=== PATIENT | male | born 1975 | race Caucasian/White ===

== ENCOUNTER 2016-12-27 15:51 | Emergency (ER) | payer MEDICAID | END 2016-12-27 16:45 | disposition left against medical advice (07) | LOC: MW.ED 15:51 | DX: Z53.21 Procedure and treatment not carried out due to patient leaving prior to being seen by health care provider (principal) | CPT/HCPCS: 99281 ==

== ENCOUNTER 2017-09-06 08:14 | Emergency (ER) | payer SELFPAY ==
--- NOTE | 2017-09-06 08:24 | EDM.PDOC ---
ED HPI GENERAL MEDICAL PROBLEM - General Chief Complaint: Behavioral/Psych Stated Complaint: MEDICAL Time Seen by Provider: 09/06/17 08:24 Source of Information: Reports: Patient - History of Present Illness INITIAL COMMENTS - FREE TEXT/NARRATIVE: HISTORY AND PHYSICAL: History of present illness: [Patient presents via [place] Initially an ambulance was called for the patient however he has a known combative nature and has been quite obstinate this morning. He is known to have methamphetamine use abuse dependence history and admission at [facility] for methamphetamine psychosis a year prior. He states he has not used methamphetamine in 3 weeks. He did voiced an extended his mother that he was going to kill himself today he has made mention of this several times over the last week he has some underlying factor such as Court this morning, the last year his children have been in [place] as he is going through a divorce with his as well as the ongoing legal issues. He does not voice plan however he has become quite physical requiring the please to return despite having 20 mg of Geodon IM on board we did have to perform a code strong to keep him here in the emergency room. No fever nausea vomiting chills sweats no chest pain shortness breath headache dizziness palpitation no bowel or urine symptoms Patient is known to have taken one of his mother's Xanax this morning, His mother states he has a history of bipolar disorder possibly schizophrenia he has been on Seroquel in the past however he has been out of medication for about 3 weeks Other medications have been brought to my attention by family are bupropion zolpidem and propranolol Review of systems: As per history of present illness and below otherwise all systems reviewed and negative. Past medical history: As per history of present illness and as reviewed below otherwise noncontributory. Surgical history: As per history of present illness and as reviewed below otherwise noncontributory. Social history: No reported history of drug or alcohol abuse. Family history: As per history of present illness and as reviewed below otherwise noncontributory. Physical exam: HEENT: Atraumatic, normocephalic, pupils reactive, negative for conjunctival pallor or scleral icterus, mucous membranes moist, throat clear, neck supple, nontender, trachea midline. Lungs: Clear to auscultation, breath sounds equal bilaterally, chest nontender. Heart: S1S2, regular, negative for clicks, rubs, or JVD. Abdomen: Soft, nondistended, nontender. Negative for masses or hepatosplenomegaly. Negative for costovertebral tenderness. Pelvis: Stable nontender. Genitourinary: Deferred. Rectal: Deferred. Extremities: Atraumatic, negative for cords or calf pain. Neurovascular unremarkable. Neuro: Awake, alert, oriented. Cranial nerves II through XII unremarkable. Cerebellum unremarkable. Motor and sensory unremarkable throughout. Exam nonfocal. Diagnostics: [CBC CMP UA troponin EKG chest 1 view aspirin and Tylenol levels as well as alcohol and drug screening tsh EKG Chest 1 view ] Therapeutics: [20 mg of Geodon IM Haldol 10 mg IM Ativan 2 mg IV ] Impression: [Suicidal ideation Methamphetamine use and abuse Paranoid delusions Medication noncompliance] Definitive disposition and diagnosis as appropriate pending reevaluation and review of above. - Related Data Allergies Allergy/AdvReac Type Severity Reaction Status Date / Time azithromycin Allergy Hives Verified 09/06/17 08:25 Penicillins Allergy Hives Verified 09/06/17 08:25 Home Meds: Home Meds Propranolol HCl [Propranolol] 10 mg PO Q8HR 09/06/17 [History] QUEtiapine Fumarate [Seroquel] 240 mg PO DAILY 09/06/17 [History] Zolpidem Tartrate [Ambien] 10 mg PO DAILY 09/06/17 [History] Past Medical History HEENT History: Reports: None Cardiovascular History: Reports: Hypertension Respiratory History: Reports: None Gastrointestinal History: Reports: Other (See Below) Other Gastrointestinal History: colitis Genitourinary History: Reports: None Musculoskeletal History: Reports: None Neurological History: Reports: None Psychiatric History: Reports: Addiction, Aggressive/Hostile Behaviors, Bipolar, Emotional Problems, Psych Hospitalization(s), Suicide Attempt, Suicidal Ideation Other Psychiatric History: states in treatment 1 yr ago Endocrine/Metabolic History: Reports: None Hematologic History: Reports: None Immunologic History: Reports: None Oncologic (Cancer) History: Reports: None Dermatologic History: Reports: None - Infectious Disease History Infectious Disease History: Reports: Chicken Pox - Past Surgical History Head Surgeries/Procedures: Reports: None Social & Family History - Family History Family Medical History: Noncontributory - Tobacco Use Smoking Status *Q: Current Every Day Smoker Years of Tobacco use: 1 Packs/Tins Daily: 1 Second Hand Smoke Exposure: Yes - Caffeine Use Caffeine Use: Reports: Soda - Alcohol Use Days Per Week of Alcohol Use: 0 - Recreational Drug Use Recreational Drug Use: Yes Drug Use in Last 12 Months: Yes Recreational Drug Type: Reports: Methamphetamine Recreational Drug Use Frequency: Socially ED ROS GENERAL - Review of Systems Review Of Systems: ROS reveals no pertinent complaints other than HPI. ED EXAM, GENERAL - Physical Exam Exam: See Below Course - Vital Signs Last Recorded V/S: Last Vital Signs Temp 96.5 F 09/06/17 08:48 Pulse 73 09/06/17 08:48 Resp 18 09/06/17 08:48 BP 187/124 H 09/06/17 08:48 Pulse Ox 97 09/06/17 08:48 - Orders/Labs/Meds Orders: Active Orders 24 hr Category Date Time Status EKG Documentation Completion [RC] STAT Care 09/06/17 08:21 Active Labs: Laboratory Tests 09/06/17 09/06/17 09/06/17 Range/Units 08:33 08:33 09:11 WBC 10.47 (4.0-11.0) K/uL RBC 5.37 (4.50-5.90) M/uL Hgb 16.4 (13.0-17.0) g/dL Hct 47.3 (38.0-50.0) % MCV 88.1 (80.0-98.0) fL MCH 30.5 (27.0-32.0) pg MCHC 34.7 (31.0-37.0) g/dL RDW Std Deviation 43.8 (28.0-62.0) fl RDW Coeff of Swapna 14 (11.0-15.0) % Plt Count 307 (150-400) K/uL MPV 10.90 (7.40-12.00) fL Neut % (Auto) 59.1 (48.0-80.0) % Lymph % (Auto) 26.6 (16.0-40.0) % [facility] % (Auto) 9.8 (0.0-15.0) % Eos % (Auto) 4.2 (0.0-7.0) % Baso % (Auto) 0.3 (0.0-1.5) % Neut # (Auto) 6.2 H (1.4-5.7) K/uL Lymph # (Auto) 2.8 H (0.6-2.4) K/uL [facility] # (Auto) 1.0 H (0.0-0.8) K/uL Eos # (Auto) 0.4 (0.0-0.7) K/uL Baso # (Auto) 0.0 (0.0-0.1) K/uL Nucleated RBC % 0.0 /100WBC Nucleated RBCs # 0 K/uL Sodium 138 (136-146) mmol/L Potassium 4.5 (3.5-5.1) mmol/L Chloride 104 (98-110) mmol/L Carbon Dioxide 26 (21-31) mmol/L BUN 17 (6.0-23.0) mg/dL Creatinine 0.9 (0.6-1.5) mg/dL Est Cr Clr Drug Dosing 111.53 mL/min Estimated GFR (MDRD) > 60.0 ml/min Glucose 108 (60-110) mg/dL Calcium 9.8 (8.8-10.8) mg/dL Total Bilirubin 0.3 (0.1-1.5) mg/dL AST 27 (5-40) IU/L ALT 60 H (8-54) IU/L Alkaline Phosphatase 94 (40-150) Troponin I < 0.10 (0.0-0.29) NG/ML Total Protein 7.6 (6.0-8.0) g/dL Albumin 4.6 (3.5-5.0) g/dL Globulin 3.0 (2.0-3.5) g/dL Albumin/Globulin Ratio 1.5 (1.3-2.8) TSH 3rd Generation 1.66 (0.47-5.0) uIU/mL Urine Color YELLOW Urine Appearance CLEAR Urine pH 6.0 (5.0-8.0) Ur Specific [place] 1.015 (1.001-1.035) Urine Protein NEGATIVE (NEGATIVE) mg/dL Urine Glucose (UA) NEGATIVE (NEGATIVE) mg/dL Urine Ketones NEGATIVE (NEGATIVE) mg/dL Urine Occult Blood NEGATIVE (NEGATIVE) Urine Nitrite NEGATIVE (NEGATIVE) Urine Bilirubin NEGATIVE (NEGATIVE) Urine Urobilinogen 0.2 (<2.0) EU/dL Ur Leukocyte Esterase NEGATIVE (NEGATIVE) Urine RBC 0-1 (0-2/HPF) Urine WBC 0-1 (0-5/HPF) Ur Epithelial Cells RARE (NONE-FEW) Urine Bacteria RARE (NEGATIVE) Salicylates < 5.0 (0-20) mg/dL Urine Opiates Screen (NEGATIVE) Ur Oxycodone Screen (NEGATIVE) Urine Methadone Screen (NEGATIVE) Acetaminophen < 3.0 ug/mL Ur Barbiturates Screen (NEGATIVE) Ur Phencyclidine Scrn (NEGATIVE) Ur Amphetamine Screen (NEGATIVE) U Methamphetamines Scrn (NEGATIVE) U Benzodiazepines Scrn (NEGATIVE) U Cocaine Metab Screen (NEGATIVE) U Marijuana (THC) Screen (NEGATIVE) Ethyl Alcohol < 10.0 mg/dL 09/06/17 Range/Units 09:11 WBC (4.0-11.0) K/uL RBC (4.50-5.90) M/uL Hgb (13.0-17.0) g/dL Hct (38.0-50.0) % MCV (80.0-98.0) fL MCH (27.0-32.0) pg MCHC (31.0-37.0) g/dL RDW Std Deviation (28.0-62.0) fl RDW Coeff of Swapna (11.0-15.0) % Plt Count (150-400) K/uL MPV (7.40-12.00) fL Neut % (Auto) (48.0-80.0) % Lymph % (Auto) (16.0-40.0) % [facility] % (Auto) (0.0-15.0) % Eos % (Auto) (0.0-7.0) % Baso % (Auto) (0.0-1.5) % Neut # (Auto) (1.4-5.7) K/uL Lymph # (Auto) (0.6-2.4) K/uL [facility] [place] # (Auto) (0.0-0.8) K/uL Eos # (Auto) (0.0-0.7) K/uL Baso # (Auto) (0.0-0.1) K/uL Nucleated RBC % /100WBC Nucleated RBCs # K/uL Sodium (136-146) mmol/L Potassium (3.5-5.1) mmol/L Chloride (98-110) mmol/L Carbon Dioxide (21-31) mmol/L BUN (6.0-23.0) mg/dL Creatinine (0.6-1.5) mg/dL Est Cr Clr Drug Dosing mL/min Estimated GFR (MDRD) ml/min Glucose (60-110) mg/dL Calcium (8.8-10.8) mg/dL Total Bilirubin (0.1-1.5) mg/dL AST (5-40) IU/L ALT (8-54) IU/L Alkaline Phosphatase (40-150) Troponin I (0.0-0.29) NG/ML Total Protein (6.0-8.0) g/dL Albumin (3.5-5.0) g/dL Globulin (2.0-3.5) g/dL Albumin/Globulin Ratio (1.3-2.8) TSH 3rd Generation (0.47-5.0) uIU/mL Urine Color Urine Appearance Urine pH (5.0-8.0) Ur Specific [place] (1.001-1.035) Urine Protein (NEGATIVE) mg/dL Urine Glucose (UA) (NEGATIVE) mg/dL Urine Ketones (NEGATIVE) mg/dL Urine Occult Blood (NEGATIVE) Urine Nitrite (NEGATIVE) Urine Bilirubin (NEGATIVE) Urine Urobilinogen (<2.0) EU/dL Ur Leukocyte Esterase (NEGATIVE) Urine RBC (0-2/HPF) Urine WBC (0-5/HPF) Ur Epithelial Cells (NONE-FEW) Urine Bacteria (NEGATIVE) Salicylates (0-20) mg/dL Urine Opiates Screen NEGATIVE (NEGATIVE) Ur Oxycodone Screen NEGATIVE (NEGATIVE) Urine Methadone Screen NEGATIVE (NEGATIVE) Acetaminophen ug/mL Ur Barbiturates Screen NEGATIVE (NEGATIVE) Ur Phencyclidine Scrn NEGATIVE (NEGATIVE) Ur Amphetamine Screen NEGATIVE (NEGATIVE) U Methamphetamines Scrn NEGATIVE (NEGATIVE) U Benzodiazepines Scrn POSITIVE (NEGATIVE) U Cocaine Metab Screen NEGATIVE (NEGATIVE) U Marijuana (THC) Screen NEGATIVE (NEGATIVE) Ethyl Alcohol mg/dL Meds: Medications Discontinued Medications Generic Name Dose Route Start Last Admin Trade Name Freq PRN Reason Stop Dose Admin Haloperidol Lactate Confirm 09/06/17 09:30 09/06/17 09:46 Haldol Administered 09/06/17 09:31 10 mg Dose Administration 10 mg .ROUTE .STK-MED ONE Sterile Water Confirm 09/06/17 08:47 09/06/17 08:57 Sterile Water For Injection Administered 09/06/17 08:48 1.2 ml Dose Administration 20 mls @ as directed .ROUTE .STK-MED ONE Lorazepam Confirm 09/06/17 09:31 09/06/17 09:45 Ativan Administered 09/06/17 09:32 2 mg Dose Administration 2 mg .ROUTE .STK-MED ONE Ziprasidone 20 mg 09/06/17 08:35 09/06/17 08:57 Geodon IM 09/06/17 08:36 20 mg ONETIME ONE Administration Departure - Departure Time of Disposition: 10:12 Disposition: DC/Tfer to Other 70 Condition: Fair Clinical Impression: Suicidal ideation, Medical non-compliance - Discharge Information Referrals: PCP,None [Primary Care Provider] - Forms: ED Department Discharge - My Orders Last 24 Hours: My Active Orders 09/06/17 08:21 EKG Documentation Completion [RC] STAT - Assessment/Plan Last 24 Hours: My Active Orders 09/06/17 08:21 EKG Documentation Completion [RC] STAT
[2017-09-06] MEDS ORDERED: Ziprasidone Mesylate 20 MG Vial IM ONE (08:35)
[2017-09-06] MEDS ORDERED: Water For Injection, Sterile 20 ML ONE (08:47)
[2017-09-06 09:04] LABS: CHLORIDE,CL 104 mmol/L (98-110); SODIUM,NA 138 mmol/L (136-146)
--- NOTE | 2017-09-06 09:04 | CR ---
EXAMINATION: Portable chest radiograph. HISTORY: Pain. FINDINGS: The trachea is midline. The cardiomediastinal silhouette is within normal limits. No pulmonary infilt rates, effusions or pneumothorax. Osseous structures appear unremarkable. IMPRESSION: No acute cardiopulmonary process.
[2017-09-06] MEDS ORDERED: Haloperidol Lactate 5 MG/ML SDV ONE (09:30)
[2017-09-06] MEDS ORDERED: LORazepam 2 MG/ML SDV ONE (09:31)
[2017-09-06 10:01] LABS: ACETAMINOPHEN < 3.0 ug/mL
[2017-09-06 10:34] VITALS: BP 115/77
== END 2017-09-06 11:00 | disposition other institution (70) ==
LOC: MW.ED 08:14
DX: R45.851 Suicidal ideations (principal); F15.10 Other stimulant abuse, uncomplicated; F22 Delusional disorders; I10 Essential (primary) hypertension; F31.9 Bipolar disorder, unspecified; F17.210 Nicotine dependence, cigarettes, uncomplicated; Z91.14 Patient's other noncompliance with medication regimen; Z79.899 Other long term (current) drug therapy; Z88.0 Allergy status to penicillin; Z88.1 Allergy status to other antibiotic agents
CPT/HCPCS: 36415; 71045; 80053; 80305; 81001; 84443; 84484; 85025; 93005; 96372; 96374; 99285; G0480; J1630; J2060; J3486; 99284

== ENCOUNTER 2017-10-22 02:46 | Emergency (ER) | payer MEDICAID ==
[2017-10-22] MEDS ORDERED: Sodium Chloride 0.9% 1,000 ML IV ONE (02:55)
[2017-10-22] MEDS ORDERED: LORazepam 2 MG/ML SDV IVPUSH ONE ×2 (02:56→03:34)
[2017-10-22] MEDS ORDERED: Sodium Chloride 0.9% 10 ML Syringe FLUSH PRN (02:56)
[2017-10-22] MEDS ORDERED: Haloperidol Lactate 5 MG/ML SDV IM ONE ×2 (02:56→03:05)
[2017-10-22] MEDS ORDERED: Sodium Chloride 0.9% 2.5 ML Syringe FLUSH PRN (02:56)
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
[2017-10-22] MEDS: LORazepam 2 MG/ML SDV ONE ×2 (03:36→03:46)
[2017-10-22 03:51] VITALS: BP 125/82
== END 2017-10-22 03:30 ==
LOC: MW.ED 02:46
DX: F15.129 Other stimulant abuse with intoxication, unspecified (principal); I10 Essential (primary) hypertension; F17.210 Nicotine dependence, cigarettes, uncomplicated; Z88.1 Allergy status to other antibiotic agents; Z88.0 Allergy status to penicillin; Z79.899 Other long term (current) drug therapy
CPT/HCPCS: 80305; 81001; 82962; 93005; 96372; 96374; 99285; J1630; J2060; J7040

== ENCOUNTER 2019-04-05 12:31 | Emergency (ER) | payer SELFPAY ==
[2019-04-05 12:52] VITALS: BP 137/104; PULSE 85
--- NOTE | 2019-04-05 13:02 | EDM.PDOC ---
ED HPI GENERAL MEDICAL PROBLEM - General Chief Complaint: Neck Problem Stated Complaint: neck swollen and getting bigger Time Seen by Provider: 04/05/19 12:41 Source of Information: Reports: Patient History Limitations: Reports: No Limitations - History of Present Illness INITIAL COMMENTS - FREE TEXT/NARRATIVE: History of present illness: []Patient has had one month history of sided palpable neck mass. Has not sought out medical treatment but today he felt a second mass. He denies any fevers, chills, dental pain, sore throat, pain, vocal change, weight loss, difficulty breathing or swallowing. Patient is a nonsmoker but states he chews tobacco. Review of systems: As per history of present illness and below otherwise all systems reviewed and negative. Past medical history: As per history of present illness and as reviewed below otherwise noncontributory. Surgical history: As per history of present illness and as reviewed below otherwise noncontributory. Social history: No reported history of drug or alcohol abuse. Family history: As per history of present illness and as reviewed below otherwise noncontributory. Physical exam: General: Well developed, well nourished in NAD HEENT: Atraumatic, normocephalic, pupils reactive, negative for conjunctival pallor or scleral icterus, mucous membranes moist, throat clear no erythema or exudate, neck supple, nontender, no palpable mass, trachea midline. Lungs: Clear to auscultation, breath sounds equal bilaterally, chest nontender. Heart: S1S2, regular, negative for clicks, rubs, or JVD. Abdomen: NABS, Soft, nondistended, nontender. Negative for masses or hepatosplenomegaly. Negative for costovertebral tenderness. Pelvis: Stable nontender. Genitourinary: Deferred. Rectal: Deferred. Extremities: Atraumatic, negative for cords or calf pain. Neurovascular unremarkable. Neuro: Awake, alert, oriented. Cranial nerves II through XII unremarkable. Cerebellum unremarkable. Motor and sensory unremarkable throughout. Exam nonfocal. Skin:warm and dry Diagnostics: Soft tissue neck, chest x-ray both negative Therapeutics: None ED Course: Stable Impression: Encounter for medical screening exam Prescriptions: none Plan: Take meds as directed, follow up with your primary care physician, return to ER if symptoms worsen or change. Definitive disposition and diagnosis as appropriate pending reevaluation and review of above. Throat Pain Score (Numeric/FACES): 1 - Related Data Allergies Allergy/AdvReac Type Severity Reaction Status Date / Time azithromycin Allergy Hives Verified 09/06/17 08:25 Penicillins Allergy Hives Verified 09/06/17 08:25 Home Meds: Home Meds Propranolol HCl [Propranolol] 10 mg PO BID 09/06/17 [History] QUEtiapine Fumarate [Seroquel] 240 mg PO DAILY 09/06/17 [History] Zolpidem Tartrate [Ambien] 10 mg PO DAILY 09/06/17 [History] buPROPion HCl [Wellbutrin Sr] 200 mg PO DAILY 04/05/19 [History] Past Medical History HEENT History: Reports: None Cardiovascular History: Reports: Hypertension Respiratory History: Reports: None Gastrointestinal History: Reports: Other (See Below) Other Gastrointestinal History: colitis Genitourinary History: Reports: None Musculoskeletal History: Reports: None Neurological History: Reports: None Psychiatric History: Reports: Addiction, Aggressive/Hostile Behaviors, Bipolar, Emotional Problems, Psych Hospitalization(s), Suicide Attempt, Suicidal Ideation Other Psychiatric History: states in treatment 1 yr ago Endocrine/Metabolic History: Reports: None Hematologic History: Reports: None Immunologic History: Reports: None Oncologic (Cancer) History: Reports: None Dermatologic History: Reports: None - Infectious Disease History Infectious Disease History: Reports: Chicken Pox - Past Surgical History Head Surgeries/Procedures: Reports: None Social & Family History - Family History Family Medical History: Noncontributory - Tobacco Use Smoking Status *Q: Former Smoker Years of Tobacco use: 2 Used Tobacco, but Quit: Yes Month/Year Tobacco Last Used: 6 months Second Hand Smoke Exposure: No - Caffeine Use Caffeine Use: Reports: Coffee, Soda - Recreational Drug Use Recreational Drug Use: No ED ROS ENT - Review of Systems Review Of Systems: See Below ED EXAM, ENT - Physical Exam Exam: See Below Course - Vital Signs Last Recorded V/S: Last Vital Signs Temp 97.7 F 04/05/19 12:45 Pulse 85 04/05/19 12:45 Resp 16 04/05/19 12:45 BP 137/104 H 04/05/19 12:45 Pulse Ox 96 04/05/19 12:45 Departure - Departure Time of Disposition: 14:17 Disposition: Home, Self-Care 01 Condition: Good Clinical Impression: Encounter for medical screening examination - Discharge Information *PRESCRIPTION DRUG MONITORING PROGRAM REVIEWED*: Not Applicable *COPY OF PRESCRIPTION DRUG MONITORING REPORT IN PATIENT ARABELLA: Not Applicable Referrals: PCP,None [Primary Care Provider] - Forms: ED Department Discharge Additional Instructions: The following information is given to patients seen in the emergency department who are being discharged to home. This information is to outline your options for follow-up care. We provide all patients seen in our emergency department with a follow-up referral. The need for follow-up, as well as the timing and circumstances, are variable depending upon the specifics of your emergency department visit. If you don't have a primary care physician on staff, we will provide you with a referral. We always advise you to contact your personal physician following an emergency department visit to inform them of the circumstance of the visit and for follow-up with them and/or the need for any referrals to a consulting specialist. The emergency department will also refer you to a specialist when appropriate. This referral assures that you have the opportunity for follow-up care with a specialist. All of these measure are taken in an effort to provide you with optimal care, which includes your follow-up. Under all circumstances we always encourage you to contact your private physician who remains a resource for coordinating your care. When calling for follow-up care, please make the office aware that this follow-up is from your recent emergency room visit. If for any reason you are refused follow-up, please contact the [facility] Emergency Department at and asked to speak to the emergency department charge nurse. Take meds as directed, follow up with your primary care physician, return to ER if symptoms worsen or change. [facility] [address] [place] [phone]
--- NOTE | 2019-04-05 14:14 | CR ---
Soft tissue neck: Two views of the neck were obtained. Comparison: No previous study. Prevertebral soft tissues are normal. Epiglottis is normal. No radiopaque foreign object is appreciated. Underlying bony structures that are seen appear within normal limits. Impression: No abnormality is seen on two-view soft tissue neck exam. Diagnostic code #1 MTDD
--- NOTE | 2019-04-05 14:15 | CR ---
Chest: Frontal view of the chest was obtained. Comparison: Prior chest x-ray of 09/06/17. Heart size is normal. Upper mediastinum is normal. Lungs are clear. Bony structures are grossly intact. Old healed rib deformity is seen within the 7th left rib. Impression: Nothing acute is seen on frontal chest x-ray. Diagnostic code #2 MTDD
== END 2019-04-05 14:26 | disposition home or self-care (01) ==
LOC: MW.ED 12:31
DX: Z13.9 Encounter for screening, unspecified (principal); I10 Essential (primary) hypertension; Z88.0 Allergy status to penicillin; Z88.1 Allergy status to other antibiotic agents; Z79.899 Other long term (current) drug therapy; Z87.891 Personal history of nicotine dependence
CPT/HCPCS: 70360; 70360-26; 71045; 71045-26; 99283-25

== ENCOUNTER 2022-07-31 13:47 | Emergency (ER) | payer SELFPAY ==
[2022-07-31 14:30] LABS: CARBON DIOXIDE,CO2 26.3 mmol/L (21.0-32.0)
[2022-07-31] MEDS ORDERED: Ondansetron 4 MG/2 ML SDV IVPUSH STA (14:39)
[2022-07-31] MEDS ORDERED: Sodium Chloride 0.9% 1,000 ML IV STA ×2 (14:39→16:29)
[2022-07-31] MEDS ORDERED: Meclizine 25 MG Tab PO STA (16:20)
[2022-07-31] MEDS ORDERED: Ketorolac 30 MG/ML SDV IVPUSH STA (16:29)
[2022-07-31 17:31] LABS: CORONAVIRUS COVID-19 NAA NEGATIVE (NEGATIVE); INFLUENZA A NAA NEGATIVE (NEGATIVE); INFLUENZA B NAA NEGATIVE (NEGATIVE); RESPIRATORY SYNCYTIAL VIR NAA NEGATIVE (NEGATIVE)
[2022-07-31 18:38] VITALS: BP 132/85; PULSE 92
== END 2022-07-31 18:36 | disposition home or self-care (01) ==
LOC: MW.ED 13:47
DX: S06.0X0A Concussion without loss of consciousness, initial encounter (principal); F15.10 Other stimulant abuse, uncomplicated; I10 Essential (primary) hypertension; Z88.1 Allergy status to other antibiotic agents; Z88.0 Allergy status to penicillin; Z79.899 Other long term (current) drug therapy; Z20.822 Contact with and (suspected) exposure to COVID-19; Y04.8XXA Assault by other bodily force, initial encounter
CPT/HCPCS: 0241U; 36415; 70450; 71045; 80053; 80305; 80307; 81003; 85025; 93005; 96361; 96374; 96375; 99285; A9270; J1885; J2405; J7030; 93010; 99283

== ENCOUNTER 2023-03-15 13:42 | Emergency (ER) | payer MEDICAID ==
[2023-03-15 14:31] VITALS: BP 142/97; PULSE 89
== END 2023-03-15 18:34 | disposition left against medical advice (07) ==
LOC: MW.ED 13:42
DX: Z53.21 Procedure and treatment not carried out due to patient leaving prior to being seen by health care provider (principal)

== ENCOUNTER 2024-01-05 16:26 | Emergency (ER) | payer MEDICAID ==
[2024-01-05 17:27] LABS: BASOPHILS ABSOLUTE AUTO 0.03 K/uL (0.00-0.20); BASOPHILS PERCENT AUTO 0.3 % (0.0-1.0); EOSINOPHILS ABSOLUTE AUTO 0.41 K/uL (0.00-0.45); EOSINOPHILS PERCENT AUTO 3.8 % (0.0-6.0); HEMATOCRIT 43.5 % (42.0-52.0); HEMOGLOBIN 14.9 g/dL (14.0-18.0); IMMATURE GRAN ABSOLUTE AUTO 0.02 K/uL (0.00-0.05); IMMATURE GRAN PERCENT AUTO 0.2 % (0.0-0.4); LYMPHOCYTES ABSOLUTE AUTO 2.76 K/uL (1.00-4.80); LYMPHOCYTES PERCENT AUTO 25.6 % (24.0-44.0); MEAN CORPUSCULAR HEMOGLOBIN 29.6 pg (28.0-32.0); MEAN CORPUSCULAR HGB CONC 34.3 g/dL (32.0-36.0); MEAN CORPUSCULAR VOLUME 86.3 fL (83.0-99.0); MEAN PLATELET VOLUME 10.6 fL (9.4-12.4); MONOCYTES ABSOLUTE AUTO 1.12 K/uL (0.00-0.80); MONOCYTES PERCENT AUTO 10.4 % (0.0-8.0); NEUTROPHILS ABSOLUTE AUTO 6.43 K/uL (1.80-7.70); NEUTROPHILS PERCENT AUTO 59.7 % (41.0-71.0); PLATELET COUNT,PLT 288 K/uL (150-400); RED BLOOD CELL COUNT 5.04 M/uL (4.52-5.90); WHITE BLOOD CELL COUNT,WBC 10.77 K/uL (3.9-11.3)
[2024-01-05 17:59] LABS: ALBUMIN 3.7 g/dL (3.4-5.0); BILIRUBIN TOTAL 0.4 mg/dL (0.2-1.0); CALCIUM 8.9 mg/dL (8.5-10.1); CARBON DIOXIDE,CO2 26.9 mmol/L (21.0-32.0); CREATININE 1.4 mg/dL (0.8-1.3); EST CRCL DRUG DOSING (CG) 66.63 mL/min; PROTEIN TOTAL,TP 7.4 g/dL (6.4-8.2)
[2024-01-05 18:06] LABS: ACETAMINOPHEN <2.0 ug/mL; ETHANOL BLOOD MEDICAL <3 mg/dL; MAGNESIUM 2.2 mg/dL (1.8-2.4); SALICYLATE 0.7 mg/dL (0.0-20.0); TSH ULTRASENSITIVE 1.43 uIU/mL (0.36-3.74)
[2024-01-05 19:34] LABS: APPEARANCE,URINE CLEAR; BILIRUBIN,URINE NEGATIVE (NEGATIVE); COLOR,URINE YELLOW; GLUCOSE,URINE NEGATIVE (NEGATIVE); KETONES,URINE NEGATIVE (NEGATIVE); LEUKOCYTE ESTERASE,URINE NEGATIVE (NEGATIVE); NITRITE,URINE NEGATIVE (NEGATIVE); OCCULT BLOOD,URINE NEGATIVE (NEGATIVE); PROTEIN,URINE NEGATIVE (NEGATIVE)
[2024-01-05 19:43] LABS: AMPHETAMINES SCREEN, URINE NEGATIVE (CUTOFF=500); BARBITURATE SCREEN,URINE NEGATIVE (CUTOFF=200); BENZODIAZEPINES SCREEN,URINE NEGATIVE (CUTOFF=150); BUPRENORPHINE SCREEN,URINE NEGATIVE (CUTOFF=10); METHADONE SCREEN, URINE NEGATIVE (CUTOFF=200); METHAMPHETAMINES SCREEN, URINE PRESUMPTIVE POSITIVE (CUTOFF=500); OXYCODONE SCREEN,URINE NEGATIVE (CUT0FF=100); PCP SCREEN,URINE NEGATIVE (CUTOFF=25); THC SCREEN,URINE 20 NG/ML NEGATIVE (CUTOFF=50)
[2024-01-05 23:01] VITALS: BP 158/92; PULSE 91
[2024-01-05] MEDS ORDERED: ALPRAZolam 0.5 MG Tab PO ONE (23:58)
[2024-01-06] MEDS: ALPRAZolam 0.5 MG Tab PO ONE (00:10)
[2024-01-06] MEDS: QUEtiapine 100 MG Tab PO ONE (00:19)
[2024-01-06] MEDS ORDERED: QUEtiapine 100 MG Tab PO SCH ×2 (21:00)
== END 2024-01-06 00:20 ==
LOC: MW.ED 16:26
DX: F22 Delusional disorders (principal); F15.10 Other stimulant abuse, uncomplicated; R45.851 Suicidal ideations; I10 Essential (primary) hypertension; Z75.8 Other problems related to medical facilities and other health care
CPT/HCPCS: 36415; 80053; 80143; 80179; 80305; 80307; 81003; 83735; 84443; 85025; 87635; 99285; A9270; U0002

== ENCOUNTER 2024-07-11 15:10 | Emergency (ER) | payer MEDICAID | END 2024-07-11 15:13 | disposition left against medical advice (07) | LOC: MW.ED 15:10 | DX: Z53.21 Procedure and treatment not carried out due to patient leaving prior to being seen by health care provider (principal) ==

== ENCOUNTER 2024-07-12 07:42 | Emergency (ER) | payer MEDICAID ==
[2024-07-12 07:56] VITALS: BP 142/83; PULSE 86
== END 2024-07-12 08:25 | disposition home or self-care (01) ==
LOC: MW.ED 07:42
DX: Z76.0 Encounter for issue of repeat prescription (principal); Z75.8 Other problems related to medical facilities and other health care; I10 Essential (primary) hypertension; Z88.0 Allergy status to penicillin; Z88.1 Allergy status to other antibiotic agents
CPT/HCPCS: 99282

== ENCOUNTER 2024-09-17 18:46 | Emergency (ER) | payer MEDICAID ==
[2024-09-17 19:26] VITALS: BP 184/94; PULSE 98
== END 2024-09-17 19:25 ==
LOC: MW.ED 18:46
DX: Z02.89 Encounter for other administrative examinations (principal); I10 Essential (primary) hypertension; Z88.0 Allergy status to penicillin; Z88.1 Allergy status to other antibiotic agents; Z79.899 Other long term (current) drug therapy
CPT/HCPCS: 99282; 99283

== ENCOUNTER 2024-11-18 16:54 | Emergency (ER) | payer MEDICAID ==
[2024-11-18 17:19] VITALS: BP 128/93; PULSE 88
== END 2024-11-18 18:33 | disposition left against medical advice (07) ==
LOC: MW.ED 16:54
DX: Z53.21 Procedure and treatment not carried out due to patient leaving prior to being seen by health care provider (principal)

== ENCOUNTER 2025-01-22 00:10 | Emergency (ER) | payer MEDICAID ==
[2025-01-22 00:16] VITALS: BP 119/59
[2025-01-22] MEDS: diphenhydrAMINE 50 MG/ML SDV IM ONE (00:17)
[2025-01-22 00:44] VITALS: PULSE 67
== END 2025-01-22 00:44 ==
LOC: MW.ED 00:10
DX: F19.921 Other psychoactive substance use, unspecified with intoxication with delirium (principal); I10 Essential (primary) hypertension; Z88.0 Allergy status to penicillin; Z88.1 Allergy status to other antibiotic agents; Z79.899 Other long term (current) drug therapy
CPT/HCPCS: 96372; 99284; J1200; J1630; 99281